=== PATIENT | female | born 1980 | race Caucasian/White ===

== ENCOUNTER 2023-09-05 10:53 | Outpatient (CLI) | payer OTHER, SELFPAY | END 2023-09-05 10:54 | disposition home or self-care (01) | LOC: AMB 09-16 07:44 | PROVIDERS: Visit Provider Student in an Organized Health Care Education/Training Program | DX: F29 Unspecified psychosis not due to a substance or known physiological condition (principal); F91.9 Conduct disorder, unspecified | CPT/HCPCS: A0425; A0429 ==